=== PATIENT | female | born 1960 | race Hispanic/Latino ===

== ENCOUNTER 2017-05-26 12:06 | Inpatient (IN) | payer MEDICAID ==
[2017-05-26 12:06] VITALS: BMI 27.4
--- NOTE | 2017-05-26 16:41 | C.PDOC ---
History Of Present Illness Pt was sent in by Dr. Johnson to be admitted on his service due to "incarcerated ventral hernia". Pt already had her pre-op testing done. Time Seen by Provider: 05/26/17 16:14 Chief Complaint (Nursing): Abdominal Pain History Per: Patient Onset/Duration Of Symptoms: Days (few months), Waxing/Waning Current Symptoms Are (Timing): Still Present Severity: Moderate Location Of Pain/Discomfort: Periumbilical Quality Of Discomfort: Unable To Describe, "Pain" Exacerbating Factors: Upright Position Alleviating Factors: None Last Bowel Movement: Yesterday Additional History Per: Prior Records Past Medical History Reviewed: Historical Data, Nursing Documentation, Vital Signs Vital Signs: Last Vital Signs Temp 97.8 F 05/26/17 13:15 Pulse 91 H 05/26/17 13:15 Resp 20 05/26/17 13:15 BP 168/71 H 05/26/17 13:15 Pulse Ox 98 05/26/17 13:15 - Medical History PMH: Anxiety, Asthma, HTN, Osteoporosis, Peripheral Edema Surgical History: Endoscopy, Hernia Repair - [facility] Procedures RELEASE LESSER OMENTUM, OPEN APPROACH (09/06/15) SUPPLEMENT ABDOMINAL WALL WITH SYNTH SUB, OPEN APPROACH (09/06/15) Family History: States: Unknown Family Hx - Social History Hx Tobacco Use: No Hx Alcohol Use: No Hx Substance Use: No Review Of Systems Except As Marked, All Systems Reviewed And Found Negative. Constitutional: Negative for: Fever, Weakness Cardiovascular: Negative for: Chest Pain Respiratory: Negative for: Shortness of Breath, Hemoptysis Gastrointestinal: Positive for: Abdominal Pain. Negative for: Vomiting, Constipation, Melena, Hematochezia, Hematemesis Genitourinary: Negative for: Dysuria Musculoskeletal: Negative for: Neck Pain, Back Pain Skin: Negative for: Rash Neurological: Negative for: Weakness, Numbness Physical Exam - Physical Exam Appears: Non-toxic, No Acute Distress Skin: Normal Color, Warm, Dry, No Rash Head: Atraumatic, Normacephalic Eye(s): bilateral: PERRL, EOMI Neck: Normal ROM, Supple Cardiovascular: Rhythm Regular Respiratory: Normal Breath Sounds, No Accessory Muscle Use Gastrointestinal/Abdominal: Bowel Sounds (wnl), Soft, Tenderness (mild periumbilical), No Guarding, No Rebound, Hernia (ventral) Back: No CVA Tenderness Extremity: Normal ROM Neurological/Psych: Oriented x3, Normal Motor, Normal Sensation ED Course And Treatment O2 Sat by Pulse Oximetry: 98 Pulse Ox Interpretation: Normal Disposition Counseled Patient/Family Regarding: Diagnosis, Smoking Cessation - Disposition Disposition: HOSPITALIZED Disposition Time: 16:42 Condition: FAIR - Clinical Impression Clinical Impression: Ventral hernia
--- NOTE | 2017-05-26 17:52 | CP.PCM.CON ---
History of Present Illness - History of Present Illness History of Present Illness: CAlled by Dr Johnson to evaluate patient with an incarcerated hernia. She may need surgery. She is currently not in her ER bed, and likley off for s study. will need evaluation of ventricular function prior to surgery. will order echocardiogram. full consult after echocardiogram Past Patient History - Past Medical History & Family History Past Medical History?: Yes - Past Social History Smoking Status: Heavy Smoker > 10 Cigarettes Daily - CARDIAC Hx Hypertension: Yes Hx Peripheral Edema: Yes - PULMONARY Hx Asthma: Yes - NEUROLOGICAL Hx Neurological Disorder: Yes (peripheral neuropathy) - HEENT Hx HEENT Problems: No - RENAL Hx Chronic Kidney Disease: No - ENDOCRINE/METABOLIC Hx Endocrine Disorders: Yes Hx Diabetes Mellitus Type 2: Yes - HEMATOLOGICAL/ONCOLOGICAL Hx Blood Disorders: No - INTEGUMENTARY Hx Dermatological Problems: No - MUSCULOSKELETAL/RHEUMATOLOGICAL Hx Osteoporosis: Yes - GASTROINTESTINAL Hx Gastrointestinal Disorders: Yes (constipation) - GENITOURINARY/GYNECOLOGICAL Hx Genitourinary Disorders: No - PSYCHIATRIC Hx Anxiety: Yes Hx Substance Use: No - SURGICAL HISTORY Hx Surgeries: Yes Hx Section: Yes (1976 1983) Hx Herniorrhaphy: Yes Hx Orthopedic Surgery: Yes (right foot) Other/Comment: DENTAL EXTRACTIONS WITH ANESTHESIA. HX: 09/06/15- VENTRAL HERNIA REPAIR WITH SURGICAL MATRIX A -CELL - ANESTHESIA Hx Anesthesia: Yes Hx Anesthesia Reactions: No Hx Malignant Hyperthermia: No Meds Allergies/Adverse Reactions: Allergies Allergy/AdvReac Type Severity Reaction Status Date / Time No Known Allergies Allergy Verified 05/26/17 13:20 - Medications Medications: Current Medications Dextrose/Sodium Chloride (Dextrose 5%/0.45% Ns 1000 Ml) 1,000 mls @ 100 mls/hr IV .Q10H [facility] Polyethylene Glycol/Electrolytes (Golytely) 4,000 ml PO ONCE ONE Stop: 05/27/17 07:01 Results - Vital Signs Recent Vital Signs: Last Vital Signs Temp 97.8 F 05/26/17 13:15 Pulse 91 H 05/26/17 13:15 Resp 20 05/26/17 13:15 BP 168/71 H 05/26/17 13:15 Pulse Ox 98 05/26/17 16:42
[2017-05-26 18:07] LABS: BASO # 0.1 K/uL (0.0-0.2); BASO % 0.8 % (0.0-2.0); EOS # 0.5 K/uL (0.0-0.7); EOS % 3.5 % (0.0-4.0); HEMOGLOBIN 13.7 g/dL (11.0-16.0); LYMPH # 3.4 K/uL (1.0-4.3); MEAN CORPUSCULAR HEMOGLOBIN 31.3 pg (27.0-31.0); MEAN CORPUSCULAR HGB CONC 34.1 g/dL (33.0-37.0); MEAN PLATELET VOLUME 7.8 fL (7.2-11.7); MONO # 0.8 K/uL (0.0-0.8); NEUT # 8.4 K/uL (1.8-7.0); NEUT % 63.7 % (50.0-75.0); NRBC % 0.1 % (0.0-2.0); RBC 4.36 Mil/uL (3.80-5.20); RED CELL DISTRIBUTION WIDTH 14.2 % (11.5-14.5); WHITE BLOOD COUNT 13.2 K/uL (4.8-10.8)
[2017-05-26 18:16] LABS: INR 0.9; PROTHROMBIN TIME 10.3 SECONDS (9.7-12.2)
[2017-05-26 18:32] LABS: ALB/GLOB RATIO 1.1 (1.0-2.1); ALBUMIN 4.2 g/dL (3.5-5.0); ALT/SGPT 16 U/L (9-52); AST/SGOT 26 U/L (14-36); BLOOD UREA NITROGEN 20 mg/dL (7-17); CALCIUM 8.5 mg/dl (8.6-10.4); GFR AFRICAN-AMERICAN > 60; GFR NON-AFRICAN AMERICAN > 60
[2017-05-26] MEDS ORDERED: Dextrose 5%/0.45% NS 1,000 ML IV ONE (20:58)
[2017-05-26] MEDS: Dextrose 5%/0.45% NS 1,000 ML IV SCH (20:58)
[2017-05-27] MEDS: Dextrose 5%/0.45% NS 1,000 ML IV SCH ×2 (04:23→12:37)
[2017-05-27] MEDS ORDERED: Peg-Electrolyte Oral Soln 4L (Golytely) PO ONE (07:00)
[2017-05-27] MEDS ORDERED: Albuterol-Ipratrop 3 mg / 0.5 (3 ml) UD INH PRN (11:11)
[2017-05-27] MEDS ORDERED: ALPRAZOLAM PO PRN (11:26)
--- NOTE | 2017-05-27 11:56 | CP.PCM.CON ---
History of Present Illness - History of Present Illness History of Present Illness: 57 yo female with HTN COPD DMII admitted with abd pain May need hernia repair Dr Noland to [facility] before OR Past Patient History - Past Medical History & Family History Past Medical History?: Yes - Past Social History Smoking Status: Heavy Smoker > 10 Cigarettes Daily - CARDIAC Hx Hypertension: Yes Hx Peripheral Edema: Yes - PULMONARY Hx Asthma: Yes - NEUROLOGICAL Hx Neurological Disorder: Yes (peripheral neuropathy) - HEENT Hx HEENT Problems: No - RENAL Hx Chronic Kidney Disease: No - ENDOCRINE/METABOLIC Hx Endocrine Disorders: Yes Hx Diabetes Mellitus Type 2: Yes - HEMATOLOGICAL/ONCOLOGICAL Hx Blood Disorders: No - INTEGUMENTARY Hx Dermatological Problems: No - MUSCULOSKELETAL/RHEUMATOLOGICAL Hx Osteoporosis: Yes - GASTROINTESTINAL Hx Gastrointestinal Disorders: Yes (constipation) - GENITOURINARY/GYNECOLOGICAL Hx Genitourinary Disorders: No - PSYCHIATRIC Hx Anxiety: Yes Hx Substance Use: No - SURGICAL HISTORY Hx Surgeries: Yes Hx Section: Yes (1976 1983) Hx Herniorrhaphy: Yes Hx Orthopedic Surgery: Yes (right foot) Other/Comment: DENTAL EXTRACTIONS WITH ANESTHESIA. HX: 09/06/15- VENTRAL HERNIA REPAIR WITH SURGICAL MATRIX A -CELL - ANESTHESIA Hx Anesthesia: Yes Hx Anesthesia Reactions: No Hx Malignant Hyperthermia: No Meds Allergies/Adverse Reactions: Allergies Allergy/AdvReac Type Severity Reaction Status Date / Time No Known Allergies Allergy Verified 05/26/17 13:20 - Medications Medications: Current Medications Albuterol/Ipratropium (Duoneb 3 Mg/0.5 Mg (3 Ml) Ud) 3 ml INH RQ6 PRN PRN Reason: Wheezing Amlodipine Besylate (Norvasc) 1 mg PO DAILY [facility] Docusate Sodium (Colace) 100 mg PO DAILY [facility] Enoxaparin Sodium (Lovenox) 40 mg SC DAILY [facility] Gabapentin (Neurontin) 800 mg PO TID [facility] Glipizide (Glucotrol Xl) 1 mg PO DAILY [facility] Home Med (Alprazolam [Xanax]) 0.5 tab PO TID PRN PRN Reason: Anxiety Hydromorphone HCl (Dilaudid) 1 mg IVP Q3H PRN PRN Reason: Pain Last Admin: 05/27/17 00:59 Dose: 1 mg Dextrose/Sodium Chloride (Dextrose 5%/0.45% Ns 1000 Ml) 1,000 mls @ 100 mls/hr IV .Q10H [facility] Last Admin: 05/27/17 04:23 Dose: 100 mls/hr Metformin HCl (Glucophage) 850 mg PO BIDCC [facility] Montelukast Sodium (Singulair) 1 mg PO DAILY [facility] Rosuvastatin Calcium (Crestor) 5 mg PO HS [facility] Results - Vital Signs Recent Vital Signs: Last Vital Signs Temp 98.6 F 05/27/17 09:20 Pulse 81 05/27/17 09:20 Resp 20 05/27/17 09:20 BP 118/66 05/27/17 09:20 Pulse Ox 96 05/27/17 09:20 - Labs Result Diagrams: 05/26/17 18:02 05/26/17 18:02 Labs: Laboratory Results - last 24 hr 05/26/17 05/26/17 05/26/17 18:02 18:02 18:02 WBC 13.2 H RBC 4.36 Hgb 13.7 Hct 40.1 MCV 92.0 MCH 31.3 H MCHC 34.1 RDW 14.2 Plt Count 408 H MPV 7.8 Neut % (Auto) 63.7 Lymph % (Auto) 26.0 [place] % (Auto) 6.0 Eos % (Auto) 3.5 Baso % (Auto) 0.8 Neut # (Auto) 8.4 H Lymph # (Auto) 3.4 [place] # (Auto) 0.8 Eos # (Auto) 0.5 Baso # (Auto) 0.1 PT 10.3 INR 0.9 APTT 32 Sodium 140 Potassium 4.3 Chloride 104 Carbon Dioxide 24 Anion Gap 16 BUN 20 H Creatinine 0.8 Est GFR ( Amer) > 60 Est GFR (Non-Af Amer) > 60 POC Glucose (mg/dL) Random Glucose 152 H Calcium 8.5 L Total Bilirubin 0.5 AST 26 ALT 16 Alkaline Phosphatase 79 Total Protein 7.8 Albumin 4.2 Globulin 3.7 Albumin/Globulin Ratio 1.1 Blood Type Antibody Screen 05/26/17 05/27/17 05/27/17 18:02 03:19 11:12 WBC RBC Hgb Hct MCV MCH MCHC RDW Plt Count MPV Neut % (Auto) Lymph % (Auto) [place] % (Auto) Eos % (Auto) Baso % (Auto) Neut # (Auto) Lymph # (Auto) [place] # (Auto) Eos # (Auto) Baso # (Auto) PT INR APTT Sodium Potassium Chloride Carbon Dioxide Anion Gap BUN Creatinine Est GFR ( Amer) Est GFR (Non-Af Amer) POC Glucose (mg/dL) 132 H 119 H Random Glucose Calcium Total Bilirubin AST ALT Alkaline Phosphatase Total Protein Albumin Globulin Albumin/Globulin Ratio Blood Type A POSITIVE Antibody Screen Negative
--- NOTE | 2017-05-27 11:57 | CARD ---
APPROVED REPORT EKG Measurement Heart [id number] CO [id number] <Conclusion> Normal sinus rhythm Septal infarct, age undetermined Abnormal ECG
[2017-05-27] MEDS: Enoxaparin 40 mg Syringe SC SCH (12:37)
[2017-05-27] MEDS: GlipiZIDE 5 mg SR Tab PO SCH (12:49)
--- NOTE | 2017-05-27 17:59 | CP.PCM.CON ---
History of Present Illness - History of Present Illness History of Present Illness: patietn seen/examined. full consutl to follow. Echocardiogram reviewed. normal left ventricular function, no valvular dysfunction. no cardiovascular contraindication to the planned hernia repair. Past Patient History - Past Medical History & Family History Past Medical History?: Yes - Past Social History Smoking Status: Heavy Smoker > 10 Cigarettes Daily - CARDIAC Hx Hypertension: Yes Hx Peripheral Edema: Yes - PULMONARY Hx Asthma: Yes - NEUROLOGICAL Hx Neurological Disorder: Yes (peripheral neuropathy) - HEENT Hx HEENT Problems: No - RENAL Hx Chronic Kidney Disease: No - ENDOCRINE/METABOLIC Hx Endocrine Disorders: Yes Hx Diabetes Mellitus Type 2: Yes - HEMATOLOGICAL/ONCOLOGICAL Hx Blood Disorders: No - INTEGUMENTARY Hx Dermatological Problems: No - MUSCULOSKELETAL/RHEUMATOLOGICAL Hx Osteoporosis: Yes - GASTROINTESTINAL Hx Gastrointestinal Disorders: Yes (constipation) - GENITOURINARY/GYNECOLOGICAL Hx Genitourinary Disorders: No - PSYCHIATRIC Hx Anxiety: Yes Hx Substance Use: No - SURGICAL HISTORY Hx Surgeries: Yes Hx Section: Yes (1976 1983) Hx Herniorrhaphy: Yes Hx Orthopedic Surgery: Yes (right foot) Other/Comment: DENTAL EXTRACTIONS WITH ANESTHESIA. HX: 09/06/15- VENTRAL HERNIA REPAIR WITH SURGICAL MATRIX A -CELL - ANESTHESIA Hx Anesthesia: Yes Hx Anesthesia Reactions: No Hx Malignant Hyperthermia: No Meds Allergies/Adverse Reactions: Allergies Allergy/AdvReac Type Severity Reaction Status Date / Time No Known Allergies Allergy Verified 05/26/17 13:20 - Medications Medications: Current Medications Albuterol/Ipratropium (Duoneb 3 Mg/0.5 Mg (3 Ml) Ud) 3 ml INH RQ6 PRN PRN Reason: Wheezing Alprazolam (Xanax) 0.5 mg PO TID PRN PRN Reason: Anxiety Amlodipine Besylate (Norvasc) 1 mg PO DAILY [facility] Docusate Sodium (Colace) 100 mg PO DAILY [facility] Enoxaparin Sodium (Lovenox) 40 mg SC DAILY [facility] Last Admin: 05/27/17 12:37 Dose: 40 mg Gabapentin (Neurontin) 800 mg PO TID [facility] Last Admin: 05/27/17 14:36 Dose: 800 mg Glipizide (Glucotrol Xl) 5 mg PO DAILY [facility] Last Admin: 05/27/17 12:49 Dose: Not Given Hydromorphone HCl (Dilaudid) 1 mg IVP Q3H PRN PRN Reason: Pain Last Admin: 05/27/17 00:59 Dose: 1 mg Dextrose/Sodium Chloride (Dextrose 5%/0.45% Ns 1000 Ml) 1,000 mls @ 100 mls/hr IV .Q10H [facility] Last Admin: 05/27/17 12:37 Dose: 100 mls/hr Metformin HCl (Glucophage) 850 mg PO BIDCC [facility] Montelukast Sodium (Singulair) 10 mg PO HS [facility] Rosuvastatin Calcium (Crestor) 5 mg PO HS [facility] Results - Vital Signs Recent Vital Signs: Last Vital Signs Temp 98.2 F 05/27/17 16:00 Pulse 86 05/27/17 16:00 Resp 20 05/27/17 16:00 BP 117/64 05/27/17 16:00 Pulse Ox 95 05/27/17 16:00 - Labs Result Diagrams: 05/26/17 18:02 05/26/17 18:02 Labs: Laboratory Results - last 24 hr 05/26/17 05/26/17 05/26/17 18:02 18:02 18:02 WBC 13.2 H RBC 4.36 Hgb 13.7 Hct 40.1 MCV 92.0 MCH 31.3 H MCHC 34.1 RDW 14.2 Plt Count 408 H MPV 7.8 Neut % (Auto) 63.7 Lymph % (Auto) 26.0 [place] % (Auto) 6.0 Eos % (Auto) 3.5 Baso % (Auto) 0.8 Neut # (Auto) 8.4 H Lymph # (Auto) 3.4 [place] # (Auto) 0.8 Eos # (Auto) 0.5 Baso # (Auto) 0.1 PT 10.3 INR 0.9 APTT 32 Sodium 140 Potassium 4.3 Chloride 104 Carbon Dioxide 24 Anion Gap 16 BUN 20 H Creatinine 0.8 Est GFR ( Amer) > 60 Est GFR (Non-Af Amer) > 60 POC Glucose (mg/dL) Random Glucose 152 H Calcium 8.5 L Total Bilirubin 0.5 AST 26 ALT 16 Alkaline Phosphatase 79 Total Protein 7.8 Albumin 4.2 Globulin 3.7 Albumin/Globulin Ratio 1.1 Blood Type Antibody Screen 05/26/17 05/27/17 05/27/17 18:02 03:19 11:12 WBC RBC Hgb Hct MCV MCH MCHC RDW Plt Count MPV Neut % (Auto) Lymph % (Auto) [place] % (Auto) Eos % (Auto) Baso % (Auto) Neut # (Auto) Lymph # (Auto) [place] # (Auto) Eos # (Auto) Baso # (Auto) PT INR APTT Sodium Potassium Chloride Carbon Dioxide Anion Gap BUN Creatinine Est GFR ( Amer) Est GFR (Non-Af Amer) POC Glucose (mg/dL) 132 H 119 H Random Glucose Calcium Total Bilirubin AST ALT Alkaline Phosphatase Total Protein Albumin Globulin Albumin/Globulin Ratio Blood Type A POSITIVE Antibody Screen Negative 05/27/17 16:05 WBC RBC Hgb Hct MCV MCH MCHC RDW Plt Count MPV Neut % (Auto) Lymph % (Auto) [place] % (Auto) Eos % (Auto) Baso % (Auto) Neut # (Auto) Lymph # (Auto) [place] # (Auto) Eos # (Auto) Baso # (Auto) PT INR APTT Sodium Potassium Chloride Carbon Dioxide Anion Gap BUN Creatinine Est GFR ( Amer) Est GFR (Non-Af Amer) POC Glucose (mg/dL) 86 Random Glucose Calcium Total Bilirubin AST ALT Alkaline Phosphatase Total Protein Albumin Globulin Albumin/Globulin Ratio Blood Type Antibody Screen
--- NOTE | 2017-05-27 17:59 | CP.PCM.CON ---
Past Patient History - Past Medical History & Family History Past Medical History?: Yes - Past Social History Smoking Status: Heavy Smoker > 10 Cigarettes Daily - CARDIAC Hx Hypertension: Yes Hx Peripheral Edema: Yes - PULMONARY Hx Asthma: Yes - NEUROLOGICAL Hx Neurological Disorder: Yes (peripheral neuropathy) - HEENT Hx HEENT Problems: No - RENAL Hx Chronic Kidney Disease: No - ENDOCRINE/METABOLIC Hx Endocrine Disorders: Yes Hx Diabetes Mellitus Type 2: Yes - HEMATOLOGICAL/ONCOLOGICAL Hx Blood Disorders: No - INTEGUMENTARY Hx Dermatological Problems: No - MUSCULOSKELETAL/RHEUMATOLOGICAL Hx Osteoporosis: Yes - GASTROINTESTINAL Hx Gastrointestinal Disorders: Yes (constipation) - GENITOURINARY/GYNECOLOGICAL Hx Genitourinary Disorders: No - PSYCHIATRIC Hx Anxiety: Yes Hx Substance Use: No - SURGICAL HISTORY Hx Surgeries: Yes Hx Section: Yes (1976 1983) Hx Herniorrhaphy: Yes Hx Orthopedic Surgery: Yes (right foot) Other/Comment: DENTAL EXTRACTIONS WITH ANESTHESIA. HX: 09/06/15- VENTRAL HERNIA REPAIR WITH SURGICAL MATRIX A -CELL - ANESTHESIA Hx Anesthesia: Yes Hx Anesthesia Reactions: No Hx Malignant Hyperthermia: No Meds Allergies/Adverse Reactions: Allergies Allergy/AdvReac Type Severity Reaction Status Date / Time No Known Allergies Allergy Verified 05/26/17 13:20 - Medications Medications: Current Medications Albuterol/Ipratropium (Duoneb 3 Mg/0.5 Mg (3 Ml) Ud) 3 ml INH RQ6 PRN PRN Reason: Wheezing Alprazolam (Xanax) 0.5 mg PO TID PRN PRN Reason: Anxiety Amlodipine Besylate (Norvasc) 1 mg PO DAILY [facility] Docusate Sodium (Colace) 100 mg PO DAILY [facility] Enoxaparin Sodium (Lovenox) 40 mg SC DAILY [facility] Last Admin: 05/27/17 12:37 Dose: 40 mg Gabapentin (Neurontin) 800 mg PO TID [facility] Last Admin: 05/27/17 14:36 Dose: 800 mg Glipizide (Glucotrol Xl) 5 mg PO DAILY [facility] Last Admin: 05/27/17 12:49 Dose: Not Given Hydromorphone HCl (Dilaudid) 1 mg IVP Q3H PRN PRN Reason: Pain Last Admin: 05/27/17 00:59 Dose: 1 mg Dextrose/Sodium Chloride (Dextrose 5%/0.45% Ns 1000 Ml) 1,000 mls @ 100 mls/hr IV .Q10H [facility] Last Admin: 05/27/17 12:37 Dose: 100 mls/hr Metformin HCl (Glucophage) 850 mg PO BIDCC [facility] Montelukast Sodium (Singulair) 10 mg PO HS [facility] Rosuvastatin Calcium (Crestor) 5 mg PO HS [facility] Results - Vital Signs Recent Vital Signs: Last Vital Signs Temp 98.2 F 05/27/17 16:00 Pulse 86 05/27/17 16:00 Resp 20 05/27/17 16:00 BP 117/64 05/27/17 16:00 Pulse Ox 95 05/27/17 16:00 - Labs Result Diagrams: 05/26/17 18:02 05/26/17 18:02 Labs: Laboratory Results - last 24 hr 05/26/17 05/26/17 05/26/17 18:02 18:02 18:02 WBC 13.2 H RBC 4.36 Hgb 13.7 Hct 40.1 MCV 92.0 MCH 31.3 H MCHC 34.1 RDW 14.2 Plt Count 408 H MPV 7.8 Neut % (Auto) 63.7 Lymph % (Auto) 26.0 [place] % (Auto) 6.0 Eos % (Auto) 3.5 Baso % (Auto) 0.8 Neut # (Auto) 8.4 H Lymph # (Auto) 3.4 [place] # (Auto) 0.8 Eos # (Auto) 0.5 Baso # (Auto) 0.1 PT 10.3 INR 0.9 APTT 32 Sodium 140 Potassium 4.3 Chloride 104 Carbon Dioxide 24 Anion Gap 16 BUN 20 H Creatinine 0.8 Est GFR ( Amer) > 60 Est GFR (Non-Af Amer) > 60 POC Glucose (mg/dL) Random Glucose 152 H Calcium 8.5 L Total Bilirubin 0.5 AST 26 ALT 16 Alkaline Phosphatase 79 Total Protein 7.8 Albumin 4.2 Globulin 3.7 Albumin/Globulin Ratio 1.1 Blood Type Antibody Screen 05/26/17 05/27/17 05/27/17 18:02 03:19 11:12 WBC RBC Hgb Hct MCV MCH MCHC RDW Plt Count MPV Neut % (Auto) Lymph % (Auto) [place] % (Auto) Eos % (Auto) Baso % (Auto) Neut # (Auto) Lymph # (Auto) [place] # (Auto) Eos # (Auto) Baso # (Auto) PT INR APTT Sodium Potassium Chloride Carbon Dioxide Anion Gap BUN Creatinine Est GFR ( Amer) Est GFR (Non-Af Amer) POC Glucose (mg/dL) 132 H 119 H Random Glucose Calcium Total Bilirubin AST ALT Alkaline Phosphatase Total Protein Albumin Globulin Albumin/Globulin Ratio Blood Type A POSITIVE Antibody Screen Negative 05/27/17 16:05 WBC RBC Hgb Hct MCV MCH MCHC RDW Plt Count MPV Neut % (Auto) Lymph % (Auto) [place] % (Auto) Eos % (Auto) Baso % (Auto) Neut # (Auto) Lymph # (Auto) [place] # (Auto) Eos # (Auto) Baso # (Auto) PT INR APTT Sodium Potassium Chloride Carbon Dioxide Anion Gap BUN Creatinine Est GFR ( Amer) Est GFR (Non-Af Amer) POC Glucose (mg/dL) 86 Random Glucose Calcium Total Bilirubin AST ALT Alkaline Phosphatase Total Protein Albumin Globulin Albumin/Globulin Ratio Blood Type Antibody Screen
[2017-05-27] MEDS ORDERED: Pneumococcal 23-Valent Vaccine IM ONE (18:51)
[2017-05-28] MEDS: Dextrose 5%/0.45% NS 1,000 ML IV SCH ×3 (00:25→18:16)
[2017-05-28] MEDS: GlipiZIDE 5 mg SR Tab PO SCH (09:07)
[2017-05-28] MEDS: Enoxaparin 40 mg Syringe SC SCH (09:08)
--- NOTE | 2017-05-28 12:12 | CARD ---
APPROVED REPORT EXAM: Two-dimensional and M-mode echocardiogram with Doppler and color Doppler. Other Information Quality : GoodRhythm : INDICATION Pre-Op 2D DIMENSIONS IVSd1.4 (0.7-1.1cm)LVDd3.9 (3.9-5.9cm) PWd1.4 (0.7-1.1cm)LVDs3.1 (2.5-4.0cm) FS (%) 19.7 %LVEF (%)55.0 (>50%) M-Mode DIMENSIONS Left Atrium (MM)4.20 (2.5-4.0cm)IVSd1.18 (0.7-1.1cm) Aortic Root2.54 (2.2-3.7cm)LVDd5.59 (4.0-5.6cm) Aortic Cusp Exc.1.22 (1.5-2.0cm)PWd1.44 (0.7-1.1cm) FS (%) 53 %LVDs2.62 (2.0-3.8cm) LVEF (%)84 (>50%) Aortic Valve AoV Peak Vakbssmm906.4cm/sAoV VTI60.5cmAO Peak GR.25mmHg LVOT Peak Bsnvkjfs32.6cm/sLVOT VTI25.31cmAO Mean GR.13mmHg AI P 1/2 [id number] Mitral Valve MV E Vyjoiiow606.5cm/sMV A Cgurfgnb750.7cm/sE/A ratio0.9 TDI E/Lateral E'0.0E/Medial E'0.0 Tricuspid Valve TR Peak Sduvdnjv678tr/sTR Peak Gr.27mmHg LEFT VENTRICLE The left ventricle is normal size. There is mild to moderate concentric left ventricular hypertrophy. The left ventricular function is normal. The left ventricular ejection fraction is within the normal range. There is normal LV segmental wall motion. Tissue Doppler imaging reveals mild left ventricular diastolic dysfunction. Transmitral Doppler flow pattern is Grade I-abnormal relaxation pattern. No left ventricle thrombus noted on this study. There is no ventricular septal defect visualized. There is no left ventricular aneurysm. There is no mass noted in the left ventricle. RIGHT VENTRICLE The right ventricle is normal size. There is normal right ventricular wall thickness. The right ventricular systolic function is normal. ATRIA The left atrium is moderately dilated. The right atrium size is normal. The interatrial septum is intact with no evidence for an atrial septal defect. AORTIC VALVE The aortic valve is calcified and displays decreased opening. No aortic regurgitation is present. Calculated aortic valve area is cm2 with maximum pressure gradient of 22 mmHg and mean pressure gradient of 12 mmHg. There is no aortic valvular vegetation. MITRAL VALVE The mitral valve is normal in structure. There is no mitral valve stenosis. Mitral regurgitation is trace. TRICUSPID VALVE The tricuspid valve is normal in structure. There is trace to mild tricuspid regurgitation. PULMONIC VALVE The pulmonary valve is normal in structure. There is no pulmonic valvular regurgitation. GREAT VESSELS The aortic root is normal in size. The ascending aorta is normal in size. The pulmonary artery is normal. The IVC is normal in size and collapses >50% with inspiration. PERICARDIAL EFFUSION There is no pericardial effusion. <Conclusion> There is mild to moderate concentric left ventricular hypertrophy. Tissue Doppler imaging reveals mild left ventricular diastolic dysfunction. Transmitral Doppler flow pattern is Grade I-abnormal relaxation pattern. The left atrium is moderately dilated. The aortic valve is calcified and displays decreased opening. LVEF IS 60%.
[2017-05-28] MEDS ORDERED: Midazolam 2 MG/2 ML VIAL ONE (12:58)
[2017-05-28] MEDS ORDERED: Neostigmine Methylsulfate 3mg/3ml Syringe IV ONE ×3 (12:58→13:55)
[2017-05-28] MEDS ORDERED: Propofol 10 mg/ml Inj (20 ML) ONE (12:58)
[2017-05-28] MEDS ORDERED: ceFAZolin IV 2 gm in Dextrose 2 GM/50 ML BAG IVPB ONE (13:26)
[2017-05-28] MEDS ORDERED: Bupivacaine HCl 0.25% PF (10 ml) Inj ONE ×2 (13:55)
[2017-05-28] MEDS ORDERED: Phenylephrine 10 mg/ml Inj ONE (13:55)
[2017-05-28] MEDS ORDERED: HYDROmorphone 0.5 mg/0.5 ml ISec ONE (14:14)
[2017-05-28] MEDS: HYDROmorphone 0.5 mg/0.5 ml ISec IVP PRN ×2 (14:15→15:05)
[2017-05-28] MEDS ORDERED: Lactated Ringer's 1,000 ML IV ONE (15:00)
[2017-05-28] MEDS ORDERED: ceFAZolin 1,000 MG in Sodium Chloride 100 ML IVPB SCH (16:00)
[2017-05-28 17:39] VITALS: RESP 20
--- NOTE | 2017-05-28 18:41 | CP.PCM.PN ---
Subjective - Date & Time of Evaluation Date of Evaluation: 05/28/17 Time of Evaluation: 09:00 - Subjective Subjective: afebrile alert NAD Objective - Vital Signs/Intake and Output Vital Signs (last 24 hours): Temp Pulse Resp BP Pulse Ox 97.8 F 80 20 113/60 95 05/28/17 16:00 05/28/17 16:00 05/28/17 16:00 05/28/17 16:00 05/28/17 16:00 Intake and Output: 05/28/17 05/28/17 06:59 18:59 Intake Total 1500 1850 Output Total 240 Balance 1500 1610 - Medications Medications: Current Medications Albuterol/Ipratropium (Duoneb 3 Mg/0.5 Mg (3 Ml) Ud) 3 ml INH RQ6 PRN PRN Reason: Wheezing Alprazolam (Xanax) 0.5 mg PO TID PRN PRN Reason: Anxiety Amlodipine Besylate (Norvasc) 5 mg PO DAILY [facility] Docusate Sodium (Colace) 100 mg PO DAILY [facility] Last Admin: 05/28/17 09:06 Dose: Not Given Enoxaparin Sodium (Lovenox) 40 mg SC DAILY [facility] Last Admin: 05/28/17 09:08 Dose: Not Given Gabapentin (Neurontin) 800 mg PO TID [facility] Last Admin: 05/28/17 18:15 Dose: 800 mg Glipizide (Glucotrol Xl) 5 mg PO DAILY [facility] Last Admin: 05/28/17 09:07 Dose: Not Given Hydromorphone HCl (Dilaudid) 1 mg IVP Q3H PRN PRN Reason: Pain Last Admin: 05/27/17 23:04 Dose: 1 mg Hydromorphone HCl (Dilaudid) 2 mg IVP Q4H PRN PRN Reason: pain 8-10 Last Admin: 05/28/17 18:12 Dose: 2 mg Dextrose/Sodium Chloride (Dextrose 5%/0.45% Ns 1000 Ml) 1,000 mls @ 100 mls/hr IV .Q10H [facility] Last Admin: 05/28/17 18:16 Dose: 100 mls/hr Cefazolin Sodium 1 gm/ Sodium (Chloride) 100 mls @ 100 mls/hr IVPB Q8H [facility] Metformin HCl (Glucophage) 850 mg PO BIDCC [facility] Last Admin: 05/28/17 09:07 Dose: Not Given Montelukast Sodium (Singulair) 10 mg PO [facility] Oxycodone/Acetaminophen (Percocet 5/325 Mg Tab) 2 tab PO Q4H PRN PRN Reason: pain 1-7 Stop: 05/31/17 14:27 Pneumococcal Polyvalent Vaccine (Pneumovax 23 Vaccine) 0.5 ml IM .ONCE ONE Stop: 05/29/17 10:01 Rosuvastatin Calcium (Crestor) 5 mg PO [facility] - Labs Labs: 05/26/17 18:02 05/26/17 18:02 PT 10.3 SECONDS (9.7-12.2) 05/26/17 18:02 INR 0.9 05/26/17 18:02 APTT 32 SECONDS (21-34) 05/26/17 18:02 - Constitutional Appears: Non-toxic, Chronically Ill - Head Exam Head Exam: NORMOCEPHALIC - Eye Exam Eye Exam: PERRL - ENT Exam ENT Exam: Mucous Membranes Dry - Neck Exam Neck Exam: absent: Lymphadenopathy - Respiratory Exam Respiratory Exam: Decreased Breath Sounds - Cardiovascular Exam Cardiovascular Exam: REGULAR RHYTHM - GI/Abdominal Exam GI & Abdominal Exam: Distended - Rectal Exam Rectal Exam: Deferred - Exam Exam: NORMAL INSPECTION Assessment and Plan - Assessment and Plan (Free Text) Plan: s/p hernia repair no chest pain or sob no fever cont rx
[2017-05-29] MEDS: ceFAZolin 1 GM in Sodium Chloride 0.9% 100 ML IVPB SCH ×3 (00:22→19:12)
[2017-05-29] MEDS: Dextrose 5%/0.45% NS 1,000 ML IV SCH ×2 (06:54→20:06)
[2017-05-29] MEDS ORDERED: Influenza Vaccine 60 mcg/0.5 mL SYR (4YR UP) IM ONE ×2 (10:00→18:30)
[2017-05-29] MEDS ORDERED: Pneumococcal 23-Valent Vaccine IM ONE ×2 (10:00→18:30)
[2017-05-29] MEDS: Enoxaparin 40 mg Syringe SC SCH (10:18)
[2017-05-29] MEDS: GlipiZIDE 5 mg SR Tab PO SCH (10:18)
[2017-05-29] MEDS: Oxycodone/Acetaminophen 5/325 mg Tab PO PRN (10:40)
--- NOTE | 2017-05-29 13:32 | OP ---
PROCEDURE DATE: 05/28/2017 PREOPERATIVE DIAGNOSIS: Incarcerated recurrent incisional hernia. POSTOPERATIVE DIAGNOSIS: Incarcerated recurrent incisional hernia. PROCEDURE PERFORMED: 1. Repair of incarcerated recurrent incisional hernia with mesh. 2. Lysis of adhesions. 3. Repair of small serosal tears of both small bowel and colon. 4. Advancement flap closure. SURGEON: Dr. Johnson ANESTHESIA: General blood loss was 20 mL. POSTOPERATIVE CONDITION: Stable. INDICATIONS FOR SURGERY: This is a 57-year-old female with a large recurrent midline incisional hernia. She presented with an incarceration and pain, and was treated with a bowel prep in pain medication, and IV antibiotics, is now taken to the OR for repair. GROSS FINDINGS: There was a midline ventral hernia defect, measuring approximately 8 x 8 cm. There was a large hernia sac which contained omentum, small and large bowel. Extensive lysis of adhesions had to be performed prior to the repair. DESCRIPTION OF PROCEDURE: The patient was taken to the operating room, general anesthesia administered. The abdomen was prepped and draped, and a Steri-Drape was placed. A large transverse incision was made over the midline hernia sac. The hernia sac was almost immediately encountered. It was dissected free down to the fascial edges. The fascial edges were transected carefully using the Bovie protecting the underlying bowel in the omentum. Once the hernia sac was transected, it was carefully meticulously taken off the bowel and omentum, and delivered as a specimen. Adhesions were then taken down, small and large bowel as well as omentum from the abdominal wall. Small serosal tears were repaired with silk. A 9-cm round ventral hernia patch was selected and an Onlay patch was sutured in place with interrupted #1 Novofil suture. The wound was irrigated with saline. It was enlarged and a tissue defect left from the space, and as a result a full-thickness flap was raised proximally and distally, and a greater than 30 sq cm advancement flap closure was performed with Vicryl and clips. The patient tolerated the procedure well. Returned to recovery room in stable condition. Kole Johnson MD
[2017-05-30] MEDS: ceFAZolin 1 GM in Sodium Chloride 0.9% 100 ML IVPB SCH (01:30)
[2017-05-30 01:39] VITALS: BP 111/57; PULSE 95; TEMP 98; O2SAT 95
[2017-05-30] MEDS: Oxycodone/Acetaminophen 5/325 mg Tab PO PRN ×2 (02:21→07:00)
== END 2017-05-30 08:29 | disposition home or self-care (01) | DRG 159 ==
LOC: C.ER 12:06 → C.9E 16:50 → C.3T 05-27 08:08
PROVIDERS: ADMIT Surgery; ATTEND Surgery
PROC: 0WUF0JZ Supplement Abdominal Wall with Synthetic Substitute, Open Approach (ICD-10-PCS; principal; 2017-05-28 13:40)
DX: K43.0 Incisional hernia with obstruction, without gangrene (principal); J44.9 Chronic obstructive pulmonary disease, unspecified; E11.9 Type 2 diabetes mellitus without complications; I10 Essential (primary) hypertension; M81.0 Age-related osteoporosis without current pathological fracture; Z87.891 Personal history of nicotine dependence